=== PATIENT | female | born 1990 | race Caucasian/White ===

== ENCOUNTER 2019-05-13 16:46 | Emergency (ER) | payer OTHER ==
[2019-05-13] MEDS ORDERED: ASPIRIN CHEW 81 MG TABLET PO STA (17:01)
--- NOTE | 2019-05-13 17:09 | ED Physician Documentation ---
PD HPI CHEST PAIN - Stated complaint Stated Complaint: CP/SHOULDER PX - Chief complaint Chief Complaint: Cardiac - History obtained from History obtained from: Patient - History of Present Illness Timing - onset: How many hours ago (1) Timing - onset during: Light activity Timing - duration: Hours (1) Timing - details: Gradual onset Pain level max: 5 Pain level now: 4 Quality: Aching, Throbbing Location: Left chest Radiation: Left upper extremity (shoulder) Improved by: Nothing Worsened by: Inspiration. No: Exertion, Eating, Movement, Palpation, Position Associated symptoms: Shortness of air (mild), Feeling faint / dizzy. No: Diaphoresis, Nausea, Vomiting, General Weakness, Palpitations, Cough Similar symptoms before: Has not had sx before Recently seen: Not recently seen - Additional information Additional information: mother had a PE, pt smokes and has an IUD. No recent surgery or travel. Review of Systems Ten Systems: 10 systems reviewed and negative Constitutional: denies: Fever, Chills Throat: denies: Sore throat Cardiac: denies: Palpitations Respiratory: denies: Cough GI: denies: Nausea, Vomiting, Diarrhea Skin: denies: Rash Musculoskeletal: denies: Neck pain, Back pain Neurologic: denies: Focal weakness, Numbness, Headache PD PAST MEDICAL HISTORY - Past Medical History Past Medical History: No - Present Medications Home Medications: Ambulatory Orders Medication Instructions Recorded Confirmed Levofloxacin [Levaquin] 750 mg PO DAILY #5 tablet 05/13/19 - Allergies Allergies/Adverse Reactions: Allergies Allergy/AdvReac Type Severity Reaction Status Date / Time amoxicillin Allergy Rash Verified 05/13/19 16:51 - Living Situation Living Arrangement: reports: At home - Social History Does the pt smoke?: Yes Does the pt have substance abuse?: No - Family History Family history: reports: Other (PE) PD ED PE NORMAL - Vitals Vital signs reviewed: Yes - General General: Alert and oriented X 3, No acute distress, Well developed/nourished - HEENT HEENT: PERRL, Moist mucous membranes - Neck Neck: Supple, no meningeal sign - Cardiac Cardiac: RRR, Strong equal pulses - Respiratory Respiratory: No respiratory distress, Clear bilaterally - Abdomen Abdomen: Soft, Non tender, Non distended - Back Back: No CVA TTP, No spinal TTP - Derm Derm: Warm and dry - Extremities Extremities: No edema, No calf tenderness / cord - Neuro Neuro: Alert and oriented X 3 - Psych Psych: Normal mood, Normal affect Results - Vitals Vitals: Vital Signs - 24 hr 05/13/19 05/13/19 05/13/19 16:47 17:05 17:10 Temperature 36.7 C Heart Rate 92 74 82 Respiratory 18 14 14 Rate Blood Pressure 119/75 116/73 113/73 O2 Saturation 97 99 99 05/13/19 05/13/19 18:54 19:29 Temperature Heart Rate 77 83 Respiratory 19 16 Rate Blood Pressure 100/63 109/62 O2 Saturation 100 100 Oxygen O2 Source Room air - EKG (time done) 1658 Rate: Rate (enter#) (77) Rhythm: NSR Boyd: Normal Intervals: Normal ND QRS: Normal Ischemia: Normal ST segments - Labs Labs: Laboratory Tests 05/13/19 05/13/19 05/13/19 17:05 17:05 17:05 WBC 5.7 RBC 4.28 Hgb 13.7 Hct 40.4 MCV 94.4 MCH 32.0 H MCHC 33.9 RDW 12.3 Plt Count 197 MPV 11.1 H Neut # (Auto) 3.6 Lymph # (Auto) 1.4 L Sierra # (Auto) 0.6 Eos # (Auto) 0.1 Baso # (Auto) 0.0 Absolute Nucleated RBC 0.00 Nucleated RBC % 0.0 Sodium 139 Potassium 3.8 Chloride 103 Carbon Dioxide 27 Anion Gap 9.0 BUN 8 Creatinine 0.7 Estimated GFR (MDRD) 98 Glucose 91 Calcium 9.9 Total Bilirubin 0.7 AST 30 ALT 39 Alkaline Phosphatase 77 Troponin I High Sens < 2.3 L Total Protein 8.0 Albumin 4.5 Globulin 3.5 Albumin/Globulin Ratio 1.3 Lipase 26 Urine Color Urine Clarity Urine pH Ur Specific [place] Urine Protein Urine Glucose (UA) Urine Ketones Urine Occult Blood Urine Nitrite Urine Bilirubin Urine Urobilinogen Ur Leukocyte Esterase Urine RBC Urine WBC Ur Squamous Epith Cells Urine Bacteria Ur Microscopic Review Urine Culture Comments Urine HCG, Qual 05/13/19 17:35 WBC RBC Hgb Hct MCV MCH MCHC RDW Plt Count MPV Neut # (Auto) Lymph # (Auto) Sierra # (Auto) Eos # (Auto) Baso # (Auto) Absolute Nucleated RBC Nucleated RBC % Sodium Potassium Chloride Carbon Dioxide Anion Gap BUN Creatinine Estimated GFR (MDRD) Glucose Calcium Total Bilirubin AST ALT Alkaline Phosphatase Troponin I High Sens Total Protein Albumin Globulin Albumin/Globulin Ratio Lipase Urine Color YELLOW Urine Clarity HAZY Urine pH 7.0 Ur Specific [place] 1.010 Urine Protein NEGATIVE Urine Glucose (UA) NEGATIVE Urine Ketones NEGATIVE Urine Occult Blood NEGATIVE Urine Nitrite NEGATIVE Urine Bilirubin NEGATIVE Urine Urobilinogen 0.2 (NORMAL) Ur Leukocyte Esterase SMALL H Urine RBC 0-5 Urine WBC 0-3 Ur Squamous Epith Cells MOD Squamous H Urine Bacteria Rare Ur Microscopic Review INDICATED Urine Culture Comments NOT INDICATED Urine HCG, Qual NEGATIVE - Rads (name of study) CT chest Radiology: Prelim report reviewed, EMP read contemporaneously, See rad report (1. Multifocal irregular nodules and nodular consolidation throughout the lungs, likely infectious. Minimal peripheral mucous plugging. Septic emboli could have this appearance although there is no cavitation. Differential includes inflammatory processes such as vasculitis. 2. Cholelithiasis. ) PD MEDICAL DECISION MAKING - ED course Complexity details: reviewed results, re-evaluated patient, considered differential (No ST elevation AR, no aortic dissection, no PE, no tension pneumothorax, no aortic aneurysm), d/w patient ED course: Unclear etiology of the patient's symptoms. CT scan shows multifocal irregular nodules and nodular consolidation throughout the lungs. We will treat as infectious and place her on Levaquin. She is well-appearing, nontoxic. Afebrile. Does not have any risk factors for septic emboli. No murmur on exam. Does not use IV drugs. Does not have any other symptoms of a vasculitis either. If she fails to improve, will have her follow-up with her doctor for further evaluation of the abnormal CT scan. Patient counseled regarding signs and symptoms for which I believe and urgent re-evaluation would be necessary. Patient with good understanding of and agreement to plan and is comfortable going home at this time This document was made in part using voice recognition software. While efforts are made to proofread this document, sound alike and grammatical errors may occur. Departure - Departure Disposition: 01 Home, Self Care Clinical Impression: Multifocal pneumonia Condition: Good Instructions: ED Pneumonia Adult Follow-Up: VERONICA SOTELO DO [Primary Care Provider] - (in 7-10 days) Prescriptions: Levofloxacin [Levaquin] 750 mg PO DAILY #5 tablet Comments: Take all anitbiotics until gone. Return if you worsen. You need a repeat CT after antibiotic treatment. You have gallstones as well. CT results: 1. Multifocal irregular nodules and nodular consolidation throughout the lungs, likely infectious. Minimal peripheral mucous plugging. Septic emboli could have this appearance although there is no cavitation. Differential includes inflammatory processes such as vasculitis. 2. Cholelithiasis. Discharge Date/Time: 05/13/19 19:35
[2019-05-13 17:31] LABS: BASOPHILS % (AUTO) 0.7 %; EOSINOPHILS # (AUTO) 0.1 10^3/uL (0.0-0.7); EOSINOPHILS % (AUTO) 1.1 %; HGB - HEMOGLOBIN 13.7 g/dL (12.0-16.0); LYMPHOCYTES # (AUTO) 1.4 10^3/uL (1.5-3.5); LYMPHOCYTES % (AUTO) 24.5 %; MEAN CORPUSCULAR HGB CONC 33.9 g/dL (32.0-36.0); MEAN CORPUSCULAR VOLUME 94.4 fL (81.0-99.0); MEAN PLATELET VOLUME 11.1 fL (7.9-10.8); MONOCYTES # (AUTO) 0.6 10^3/uL (0.0-1.0); MONOCYTES % (AUTO) 9.8 %; NEUTROPHILS # (AUTO) 3.6 10^3/uL (1.5-6.6); NEUTROPHILS % (AUTO) 63.7 %; PLT - PLATELET COUNT 197 10^3/uL (130-450); RED BLOOD COUNT 4.28 10^6/uL (4.20-5.40); RED CELL DISTRIBUTION WIDTH 12.3 % (12.0-15.0); WHITE BLOOD COUNT 5.7 x10^3/uL (4.8-10.8)
[2019-05-13 17:47] LABS: ALBUMIN 4.5 g/dL (3.2-5.5); ALBUMIN/GLOBULIN RATIO 1.3 (1.0-2.2); BILIRUBIN,TOTAL 0.7 mg/dL (0.2-1.0); CALCIUM 9.9 mg/dL (8.5-10.3); CREATININE 0.7 mg/dL (0.4-1.0)
[2019-05-13 18:00] LABS: BILIRUBIN,URINE NEGATIVE (NEGATIVE); GLUCOSE, URINE (UA) NEGATIVE (NEGATIVE); KETONES,URINE (UA) NEGATIVE (NEGATIVE); LEUKOCYTE ESTERASE, URINE SMALL (NEGATIVE); NITRITE,URINE NEGATIVE (NEGATIVE); OCCULT BLOOD,URINE NEGATIVE (NEGATIVE); PROTEIN,URINE NEGATIVE (NEGATIVE); UROBILINOGEN,URINE 0.2 (NORMAL) E.U./dL (NORMAL)
[2019-05-13 18:12] LABS: CLARITY,URINE HAZY (CLEAR); HCG UR QUAL NEGATIVE
[2019-05-13 18:23] LABS: BACTERIA,URINE Rare /HPF (None Seen); RBC,URINE 0-5 /HPF (0-5); SQUAMOUS EPITHELIAL CELL,UR MOD Squamous (<= Few)
--- NOTE | 2019-05-13 18:53 | CT Report ---
Reason: L sided pleuritic CP, poss PE? Procedure Date: 05/13/2019 Accession Number: [id number] / [id number] Procedure: CT - ANGIO CHEST W/WO CPT Code: FULL RESULT: EXAM: CT ANGIOGRAM CHEST EXAM DATE: 05/13/2019 06:10 PM. CLINICAL HISTORY: Left sided pleuritic chest pain, possible PE?. COMPARISON: None. TECHNIQUE: Routine helical imaging was performed through the chest in the pulmonary arterial phase. IV Contrast: ISOVUE 300 80ML. Reconstructions: Coronal 3-D MIP reconstructions.Sagittal and coronal. In accordance with CT protocol optimization, one or more of the following dose reduction techniques were utilized for this exam: automated exposure control, adjustment of mA and/or KV based on patient size, or use of iterative reconstructive technique. FINDINGS: Pulmonary Arteries: Diagnostic quality: Adequate through the segmental arteries. No evidence for acute or chronic pulmonary emboli. RV/LV is within normal limits. There is no interventricular septal bowing. There is no reflux of contrast material in the IVC. Lungs/Pleura: Multifocal irregular nodules and nodular consolidation throughout the lungs. Largest area in the right lower lobe measures 1.9 x 2.0 cm and has mild surrounding groundglass (image 192 series 5). No cavitation. No lobar consolidation. Probable trace pleural fluid at the bases. No pneumothorax. Minimal mucus plugging seen in peripheral airways, which are otherwise patent. Mediastinum: The heart is normal in size. No mediastinal or hilar lymphadenopathy. There is a small amount of residual or reactivation thymic tissue in the anterior mediastinum. Thoracic Aorta: Unremarkable. Upper Abdomen: Unremarkable. Other: None. IMPRESSION: 1. Multifocal irregular nodules and nodular consolidation throughout the lungs, likely infectious. Minimal peripheral mucous plugging. Septic emboli could have this appearance although there is no cavitation. Differential includes inflammatory processes such as vasculitis. 2. Cholelithiasis. RADIA
[2019-05-13] MEDS ORDERED: levoFLOXacin 250 MG TABLET PO STA (19:17)
[2019-05-13 19:30] VITALS: BP 109/62
== END 2019-05-13 19:35 | disposition home or self-care (01) ==
LOC: ED 16:46
DX: J18.8 Other pneumonia, unspecified organism (principal); R91.8 Other nonspecific abnormal finding of lung field; F17.200 Nicotine dependence, unspecified, uncomplicated; K80.20 Calculus of gallbladder without cholecystitis without obstruction; Z97.5 Presence of (intrauterine) contraceptive device; Z82.49 Family history of ischemic heart disease and other diseases of the circulatory system
CPT/HCPCS: 36415; 71275; 80053; 81001; 81025; 83690; 84484; 85025; 93005; 99284; A9270; 81003; 87086

== ENCOUNTER 2019-05-16 08:38 | Emergency (ER) | payer OTHER ==
[2019-05-16 08:48] VITALS: BP 114/72
[2019-05-16] MEDS ORDERED: IBUPROFEN 800 MG TABLET PO STA (09:18)
--- NOTE | 2019-05-16 09:21 | ED Physician Documentation ---
PD HPI URI - Stated complaint Stated Complaint: BREATHING DIFFICULTY - Chief complaint Chief Complaint: Resp - History obtained from History obtained from: Patient - History of Present Illness Timing - onset: How many days ago (3) Timing duration: Days (3) Timing details: Gradual onset Pain level max: 5 Pain level now: 3 Associated symptoms: Fever (none now), Chills, Dry cough, Chest pain (chest pain while breathing) Improves by: Rest Worsened by: Activity Similar symptoms before: Diagnosis (multifocal pneumonia) Recently seen: Emergency Dept (3 days ago for same.) Review of Systems Respiratory: reports: Cough GI: denies: Vomiting : denies: Now EGA PD PAST MEDICAL HISTORY - Past Medical History Past Medical History: Yes - Present Medications Home Medications: Ambulatory Orders Medication Instructions Recorded Confirmed Levofloxacin [Levaquin] 750 mg PO DAILY #5 tablet 05/13/19 Ibuprofen [Motrin] 800 mg PO Q8H PRN #30 tablet 05/16/19 - Allergies Allergies/Adverse Reactions: Allergies Allergy/AdvReac Type Severity Reaction Status Date / Time amoxicillin Allergy Rash Verified 05/16/19 08:48 - Social History Does the pt smoke?: Yes Does the pt have substance abuse?: No PD ED PE NORMAL - Vitals Vital signs reviewed: Yes - General General: Alert and oriented X 3, No acute distress - HEENT HEENT: Moist mucous membranes - Neck Neck: Supple, no meningeal sign - Cardiac Cardiac: RRR, Strong equal pulses - Respiratory Respiratory: No respiratory distress, Clear bilaterally - Abdomen Abdomen: Soft, Non tender, Non distended - Derm Derm: Warm and dry - Neuro Neuro: Alert and oriented X 3 - Psych Psych: Normal mood, Normal affect Results - Vitals Vitals: Vital Signs - 24 hr 05/16/19 08:45 Temperature 36.7 C Heart Rate 95 Respiratory 17 Rate Blood Pressure 114/72 O2 Saturation 97 Oxygen O2 Source Room air PD MEDICAL DECISION MAKING - ED course Complexity details: reviewed old records, considered differential, d/w patient ED course: Patient being treated for multifocal pneumonia on chest CT. Sounds like she has some pain with breathing. Lungs are clear to auscultation bilaterally. She is well-appearing, nontoxic. Afebrile. No hypoxia. Will place on Motrin. We will have her follow-up with her doctor for further care. Patient counseled regarding signs and symptoms for which I believe and urgent re-evaluation would be necessary. Patient with good understanding of and agreement to plan and is comfortable going home at this time This document was made in part using voice recognition software. While efforts are made to proofread this document, sound alike and grammatical errors may occur. Departure - Departure Disposition: 01 Home, Self Care Clinical Impression: Multifocal pneumonia Condition: Good Instructions: ED Pneumonia Adult Follow-Up: VERONICA SOTELO DO [Primary Care Provider] - Within 1 week Prescriptions: Ibuprofen [Motrin] 800 mg PO Q8H PRN #30 tablet PRN Reason: PAIN &/OR FEVER Comments: Take all antibiotics until gone. Return if you worsen. Follow-up with your doctor for further care.
== END 2019-05-16 09:23 | disposition home or self-care (01) ==
LOC: ED 08:38
DX: J18.9 Pneumonia, unspecified organism (principal); F17.200 Nicotine dependence, unspecified, uncomplicated
CPT/HCPCS: 99282; 99284; A9270